=== PATIENT | male | born 1940 | race Caucasian/White ===

== ENCOUNTER 2016-11-10 12:35 | Day surgery (SDC) | payer MEDICARE ==
[~2016-11-10] VITALS: Ht 182.9 cm; Wt 102.0 kg
[~2016-11-10 12:35] MED LIST: 0.9% Sodium Chloride 1,000 ML IV SCH; ASPI-973 PO; LOSA50TA37 PO; METO25TA6 PO; SIMV20TA4 PO; Sodium Chloride LOK Flush 10 mL Syringe IV PRN; fentaNYL-PF 50 mCg/mL 2 mL Inj IVPUSH PRN
[2016-11-10 13:36] VITALS: BP 143/117; PULSE 73; RESP 16; O2SAT 97
[2016-11-10] MEDS ORDERED: 0.9% Sodium Chloride 1,000 ML IV ONE (14:38)
[2016-11-10 15:13] VITALS: BP 142/99; PULSE 67; O2SAT 96
[2016-11-10 15:20] VITALS: BP 142/99; PULSE 74; O2SAT 96
[2016-11-10 15:30] VITALS: BP 144/99; PULSE 69; RESP 17; O2SAT 95
--- NOTE | 2016-11-10 15:39 | ENDO ---
[address] [address] ENDOSCOPY PROCEDURE PATIENT: GRABIEL XIONG : 1940 MR#: [id number] ADMIT: 11/10/2016 JOB ID: [id number] PROCEDURE: Colonoscopy. INDICATION: Patient with a personal history of colon polyps. Patient's ASA classification is II. Mallampati score is II. MEDICATIONS: Versed at 5.5 mg, fentanyl 125 mcg. INSTRUMENT USED: PCF-H190L. Prep quality was fair. PROCEDURE DETAILS: After informed consent was obtained, the patient was brought into the GI suite, where he was placed on oxygen via nasal cannula and monitored with continuous pulse oximeter, telemetry, and blood pressure monitoring. A time-out was performed. Then, he was placed in a left lateral decubitus position and medications were administered for sedation. Digital rectal exam was performed, which was unremarkable. Colonoscope was then inserted into the rectum and advanced under direct visualization to the cecum, which was identified by the presence of the ileocecal valve and appendiceal orifice. Once the cecum was reached, the colonoscope was withdrawn back into the rectum as the mucosa and lumen were examined. In the rectum, retroflexion was performed. Following retroflexion, remaining air in the rectum was suctioned, and procedure was completed. FINDINGS: 1. In the cecum, there was an approximately 5 mm sessile polyp that was removed with a hot snare. 2. In the transverse colon, there were four polyps, ranging in size from 4 mm to approximately 8 mm. The two smaller polyps were removed using a cold snare. The two larger polyps were removed using a hot snare. The largest polyp that was removed following polypectomy, there was heme noted at the polypectomy site and therefore a total of three Resolution clips were deployed; however, only two were successful. 3. The ileocecal valve was quite prominent and therefore multiple biopsies were obtained. IMPRESSION: 1. Four transverse colon polyps. 2. Cecal polyp. 3. Prominent ileocecal valve. RECOMMENDATIONS: No NSAIDs or anticoagulants for 72 hours. Repeat colonoscopy in three years. COMPLICATIONS: None ESTIMATED BLOOD LOSS: Less than 5 mL.
[2016-11-10 15:40] VITALS: BP 144/101; PULSE 101; O2SAT 95
--- NOTE | 2016-11-13 14:10 | PATH ---
SURGICAL PATHOLOGY Attending Physician:Shantel Ball CASE STATUS: Signed Out PATIENT NAME: GRABIEL XIONG PID: [id number] : 1940 DATE COLLECTED:11/10/2016 00:00 SPECIMEN: 1: Colon, Biopsy 2: Colon, Biopsy 3: Colon, Biopsy CLINICAL HISTORY: 1). TRANSVERSE POLYPS 2). CECAL POLYP 3). ILEAL CECAL VALVE BIOPSY FINAL DIAGNOSIS: 1.TRANSVERSE COLON POLYPS: TUBULAR ADENOMA INVOLVING MULTIPLE BIOPSY FRAGMENTS. 2.CECAL POLYP: CHANGES CONSISTENT WITH SUBMUCOSAL LIPOMA. Negative for dysplasia and malignancy. 3.ILEOCECAL VALVE BIOPSY: FRAGMENTS OF COLON MUCOSA AND SMALL AMOUNT OF SMALL BOWEL MUCOSA CONSISTENT WITH ILEOCECAL VALVE, WITH FOCAL AREA OF MUCOSAL SCARRING CONSISTENT WITH PREVIOUS MUCOSAL INJURY. Negative for granulomas. Negative for dysplasia and malignancy. ICD10 code D12.3 GROSS DESCRIPTION: Received are three formalin-filled containers, each labeled with the patient' s name. 1. Received in formalin, labeled with the patient' s name and "transverse polyp", are multiple fragments of kings[place], soft tissue ranging in size from 0.1 x 0.1 x 0.1 cm to 0.3 x 0.2 x 0.2 cm. All fragments are totally submitted in cassette 1A. 2. Received in formalin, labeled with the patient' s name and "cecal polyp", are two fragments of kingsley, soft tissue ranging in size from 0.1 x 0.1 x 0.1 cm to 0.2 x 0.1 x 0.1 cm. All fragments are totally submitted in cassette 2A. 3. Received in formalin, labeled with the patient' s name and "ileocecal valve BX", are multiple fragments of kingsley, soft tissue ranging in size from less than 0.1 cm by less than 0.1 cm by less than 0.1 cm to 0.1 x 0.1 x 0.1 cm. All fragments are totally submitted in cassette 3A. ([id number]) MICRO DESCRIPTION: See diagnosis. ICD-9 CODES: CPT CODES: 1: 29001 2: 40822 3: 30853 Electronically Signed Out Arnie Canela MD [facility] [address] [place] [id number] Technical component performed at [facility], [address], [address]
== END 2016-11-10 23:59 | disposition home or self-care (01) ==
LOC: END 12:35
PROVIDERS: ATTEND Internal Medicine Gastroenterology
DX: Z12.11 Encounter for screening for malignant neoplasm of colon (principal); Z86.010 Personal history of colon polyps; D12.3 Benign neoplasm of transverse colon; D12.0 Benign neoplasm of cecum; Z79.82 Long term (current) use of aspirin
CPT/HCPCS: 45380; 45385; 99153; G0500; J7030